=== PATIENT | male | born 1985 | race Caucasian/White ===

== ENCOUNTER 2017-11-29 11:35 | Emergency (ER) | payer MEDICAID ==
[~2017-11-29] VITALS: Ht 160 cm; Wt 62.8 kg
[2017-11-29 11:41] VITALS: Ht 160 cm; Wt 62.8 kg
[2017-11-29 13:06] LABS: BASOPHIL % 1.4 % (0-2); PLATELET COUNT 147 x10^3mcL (130-400)
[2017-11-29 13:07] LABS: RED CELL DISTRIBUTION WIDTH 14.6 % (11.5-14.5)
[2017-11-29 13:14] LABS: CALCIUM 8.4 mg/dL (8.5-10.1); CARBON DIOXIDE 26.2 mmol/L (21-32); CHLORIDE SERUM 99 mmol/L (98-107); CREATININE SERUM 0.6 mg/dL (0.7-1.3); GFR1 > 60 mL/min; GLUCOSE SERUM 97 mg/dL (74-106); POTASSIUM SERUM 3.7 mmol/L (3.5-5.1); SODIUM SERUM 137 mmol/L (136-145)
[2017-11-29 13:18] LABS: ALBUMIN 4.2 g/dL (3.4-5.0); ALKALINE PHOSPHATASE 123 U/L (46-116); ALT/SGPT 146 U/L (16-63); AST/SGOT 243 U/L (15-37); BILIRUBIN TOTAL 2.1 mg/dL (0.20-1.00)
[2017-11-29 13:20] LABS: TOTAL PROTEIN, SERUM 8.4 g/dL (6.4-8.2)
[2017-11-29 14:00] VITALS: BP 114/72
== END 2017-11-29 14:00 | disposition home or self-care (01) ==
LOC: ED 11:35
PROVIDERS: Specialist
DX: K70.9 Alcoholic liver disease, unspecified (principal); F10.20 Alcohol dependence, uncomplicated
CPT/HCPCS: 36415

== ENCOUNTER 2018-01-02 14:08 | Emergency (ER) | payer MEDICAID ==
[~2018-01-02] VITALS: Ht 160 cm; Wt 64.0 kg
[2018-01-02 14:26] VITALS: Ht 160 cm; Wt 64.0 kg
[2018-01-02 15:13] VITALS: BP 129/73
== END 2018-01-02 15:13 | disposition home or self-care (01) ==
LOC: ED 14:08
DX: H00.016 Hordeolum externum left eye, unspecified eyelid (principal); H00.013 Hordeolum externum right eye, unspecified eyelid; H11.002 Unspecified pterygium of left eye

== ENCOUNTER 2019-07-04 12:28 | Emergency (ER) | payer MEDICAID ==
[~2019-07-04] VITALS: Ht 157.5 cm; Wt 65.3 kg
[2019-07-04 12:44] VITALS: Ht 157.5 cm; Wt 65.3 kg
[2019-07-04 13:50] LABS: BASOPHIL % 0.6 % (0-2); PLATELET COUNT 185 x10^3mcL (130-400); RED CELL DISTRIBUTION WIDTH 14.4 % (11.5-14.5)
[2019-07-04 14:03] LABS: CALCIUM 9.5 mg/dL (8.5-10.1); CARBON DIOXIDE 31.5 mmol/L (21-32); CHLORIDE SERUM 99 mmol/L (98-107); CREATININE SERUM 0.8 mg/dL (0.7-1.3); GFR1 > 60 mL/min; GLUCOSE SERUM 124 mg/dL (74-106); POTASSIUM SERUM 3.7 mmol/L (3.5-5.1); SODIUM SERUM 142 mmol/L (136-145)
[2019-07-04 14:07] LABS: ALBUMIN 4.6 g/dL (3.4-5.0); ALKALINE PHOSPHATASE 140 U/L (46-116); ALT/SGPT 65 U/L (16-63); AST/SGOT 90 U/L (15-37); BILIRUBIN TOTAL 1.6 mg/dL (0.20-1.00); LIPASE 136 IU/L (73-393)
[2019-07-04 14:11] LABS: TOTAL PROTEIN, SERUM 9.5 g/dL (6.4-8.2)
[2019-07-04 15:53] VITALS: BP 126/81
== END 2019-07-04 15:53 | disposition home or self-care (01) ==
LOC: ED 12:28
PROVIDERS: Emergency Medicine
DX: R53.1 Weakness (principal); F10.239 Alcohol dependence with withdrawal, unspecified; Z98.890 Other specified postprocedural states; Y90.0 Blood alcohol level of less than 20 mg/100 ml
CPT/HCPCS: G0480; J2060; J2405; J7030

== ENCOUNTER 2019-09-11 20:33 | Emergency (ER) | payer MEDICAID ==
[~2019-09-11] VITALS: Ht 157.5 cm; Wt 67.1 kg
[2019-09-11 20:40] VITALS: Ht 157.5 cm; Wt 67.1 kg
[2019-09-11 23:31] LABS: BASOPHIL % 0.3 % (0-2); PLATELET COUNT 148 x10^3mcL (130-400)
[2019-09-11 23:32] LABS: RED CELL DISTRIBUTION WIDTH 14.7 % (11.5-14.5)
[2019-09-11 23:39] LABS: CALCIUM 9.9 mg/dL (8.5-10.1); CARBON DIOXIDE 27.7 mmol/L (21-32); CHLORIDE SERUM 101 mmol/L (98-107); CREATININE SERUM 0.7 mg/dL (0.7-1.3); GFR1 > 60 mL/min; GLUCOSE SERUM 113 mg/dL (74-106); POTASSIUM SERUM 3.8 mmol/L (3.5-5.1); SODIUM SERUM 142 mmol/L (136-145)
[2019-09-11 23:43] LABS: ALBUMIN 4.5 g/dL (3.4-5.0); ALKALINE PHOSPHATASE 98 U/L (46-116); ALT/SGPT 116 U/L (16-63); AST/SGOT 114 U/L (15-37)
[2019-09-11 23:44] LABS: TOTAL PROTEIN, SERUM 8.8 g/dL (6.4-8.2)
[2019-09-12 00:41] LABS: AMPHETAMINE QUAL UR POSITIVE (See below)
[2019-09-12 00:47] LABS: FREE T4 1.07 ng/dL (0.76-1.46)
[2019-09-12 01:35] VITALS: BP 154/86
== END 2019-09-12 01:35 | disposition home or self-care (01) ==
LOC: ED 20:33
PROVIDERS: Emergency Medicine
DX: E11.65 Type 2 diabetes mellitus with hyperglycemia (principal); R00.2 Palpitations; R42 Dizziness and giddiness; F15.10 Other stimulant abuse, uncomplicated; R74.0 Nonspecific elevation of levels of transaminase and lactic acid dehydrogenase [LDH]; F10.920 Alcohol use, unspecified with intoxication, uncomplicated; I10 Essential (primary) hypertension
CPT/HCPCS: 84439; 85378

== ENCOUNTER 2020-05-08 17:13 | Emergency (ER) | payer MEDICAID ==
[~2020-05-08] VITALS: Ht 165.1 cm; Wt 81.6 kg
[2020-05-08 18:39] VITALS: Ht 165.1 cm; Wt 81.6 kg
[2020-05-09 00:54] VITALS: BP 136/71
== END 2020-05-09 02:40 | disposition home or self-care (01) ==
LOC: ED 17:13
DX: G40.909 Epilepsy, unspecified, not intractable, without status epilepticus (principal); I10 Essential (primary) hypertension; Z98.890 Other specified postprocedural states; W01.198A Fall on same level from slipping, tripping and stumbling with subsequent striking against other object, initial encounter; Y93.89 Activity, other specified; Y92.89 Other specified places as the place of occurrence of the external cause; Y99.8 Other external cause status
CPT/HCPCS: 72072; J1953; J2060